=== PATIENT | male | born 1995 | race Caucasian/White ===

== ENCOUNTER → 2019-08-30 | Outpatient (REF) | payer OTHER ==
[2019-08-30 17:29] LABS: CHOLESTEROL RISK RATIO 3.897 (<5); TOTAL 25(OH) VITAMIN D 34.4 NG/ML (30.0-100.0)
[2019-08-30 17:45] LABS: HEMOGLOBIN A1c 5.3 %
== END ==
LOC: M SFHCCLAY 11:02
PROVIDERS: ATTEND Nurse Practitioner Family
DX: Z13.1 Encounter for screening for diabetes mellitus (principal); Z77.011 Contact with and (suspected) exposure to lead; Z13.6 Encounter for screening for cardiovascular disorders; Z13.21 Encounter for screening for nutritional disorder

== ENCOUNTER 2024-09-12 05:42 | Emergency (ER) | payer OTHER, SELFPAY ==
[~2024-09-12] VITALS: Ht 167.6 cm; Wt 85.5 kg
[2024-09-12] MEDS: ACETAMINOPHEN 500 MG TAB PO ONE (08:48)
[2024-09-12 11:37] VITALS: BP 155/87; TEMP 97.4; O2SAT 99
== END 2024-09-12 11:42 | disposition short-term general hospital (02) ==
LOC: M ED 05:42
DX: S22.080A Wedge compression fracture of T11-T12 vertebra, initial encounter for closed fracture (principal); Y92.410 Unspecified street and highway as the place of occurrence of the external cause; Y93.9 Activity, unspecified; Y99.9 Unspecified external cause status; V47.5XXA Car driver injured in collision with fixed or stationary object in traffic accident, initial encounter; Z88.0 Allergy status to penicillin

== ENCOUNTER 2025-08-01 17:23 | Emergency (ER) | payer MEDICAID, OTHER ==
[~2025-08-01] VITALS: Ht 172.7 cm; Wt 90.3 kg
[2025-08-01] MEDS ORDERED: CLIN-250 PO (19:41)
[2025-08-01] MEDS: ACETAMINOPHEN 500 MG TAB PO ONE (19:46)
[2025-08-01] MEDS: CLINDAMYCIN 150 MG CAPSULE PO ONE (19:46)
[2025-08-01 19:50] VITALS: BP 155/91; TEMP 98.1; O2SAT 98
== END 2025-08-01 19:52 | disposition home or self-care (01) ==
LOC: M ED 17:23
DX: K02.9 Dental caries, unspecified (principal); Z88.0 Allergy status to penicillin; Z79.2 Long term (current) use of antibiotics